=== PATIENT | female | born 1935 | race Caucasian/White ===

== ENCOUNTER 2017-09-26 12:11 | Emergency (ER) | payer BC ==
[~2017-09-26] VITALS: Ht 157.5 cm; Wt 62.1 kg
[2017-09-26 12:54] VITALS: BP 124/97
[2017-09-26] MEDS ORDERED: ALBUTEROL SULF 2.5 MG/0.5ML(0.5%) NEB SOLN NEB ONE (13:45)
[2017-09-26] MEDS ORDERED: methylPREDNISolone SOD SUCC 125 MG/2 ML VL IM ONE (13:45)
[2017-09-26] MEDS ORDERED: IPRATROPIUM BROM 0.5 MG/2.5ML INH SOL NEB ONE (13:45)
== END 2017-09-26 14:33 | disposition home or self-care (01) ==
LOC: ER 12:11
DX: J44.9 Chronic obstructive pulmonary disease, unspecified (principal)
CPT/HCPCS: 71046; 94640; 96372; 99284; J2930